=== PATIENT | male | born 1990 | race African-American/Black ===

== ENCOUNTER 2018-01-27 14:16 | Emergency (ER) | payer OTHER ==
[2018-01-27 14:48] VITALS: BP 125/87; PULSE 73; RESP 18; TEMP 97.9
[2018-01-27] MEDS ORDERED: ACET/COD 300 MG/30 MG STARTER PACK 6 TAB BTL PO STA (15:18)
[2018-01-27] MEDS ORDERED: KETOROLAC 30 MG/ML 1 ML VIAL IM STA (15:18)
--- NOTE | 2018-01-27 15:20 | ED ---
General Adult HPI - General Chief complaint: Headache Stated complaint: dental pain/headache Time Seen by Provider: 01/27/18 14:59 Source: patient Mode of arrival: ambulatory Limitations: no limitations - History of Present Illness Initial comments: 27-year-old male patient presents to the emergency department today for evaluation of left upper dental pain. Patient states that the pain started a couple of months ago however went away. Patient states this current episode started about 2 days ago. Patient states he is having pain to the whole left side of his face which is causing headaches. Patient denies any current swelling. Denies any fever, chills, nausea, vomiting, difficulty swallowing, or trismus. States that the pain initially started when he was incarcerated, states that he did start him on penicillin however did not give him prescription at time of release. Patient states he only had about 2 days worth of the antibiotics. Patient has not yet made a dentist appointment. Patient states he has been taking Tylenol for pain but is not helping. Patient denies any recent rash, shortness breath, chest pain, abdominal pain, nausea, vomiting , diarrhea, constipation, back pain, numbness, tingling, dizziness, weakness, hematuria, dysuria, urinary urgency, urinary frequency, headache, visual changes , or any other complaints. - Related Data Home Medications Medication Instructions Recorded Confirmed Albuterol Inhaler [Ventolin Hfa 1 - 2 puff INHALATION RT-Q6H PRN 01/27/18 Inhaler] Previous Rx's Medication Instructions Recorded Ibuprofen [Motrin] 600 mg PO Q8HR PRN #30 tab 01/27/18 Penicillin V Potassium [Pen Vee K] 500 mg PO Q6H #40 tablet 01/27/18 Allergies Allergy/AdvReac Type Severity Reaction Status Date / Time shellfish derived [Shellfish] Allergy Anaphylaxis Verified 01/27/18 15:12 Review of Systems ROS Statement: Those systems with pertinent positive or pertinent negative responses have been documented in the HPI. ROS Other: All systems not noted in ROS Statement are negative. Past Medical History Past Medical History: Asthma History of Any Multi-Drug Resistant Organisms: None Reported Past Surgical History: No Surgical Hx Reported Past Psychological History: No Psychological Hx Reported Smoking Status: Never smoker Past Alcohol Use History: None Reported Past Drug Use History: None Reported General Exam Limitations: no limitations General appearance: alert, in no apparent distress, other (This is a well- developed, well-nourished adult male patient in no acute distress. Vital signs upon presentation are temperature 97.9F, pulse 73, respirations 18, blood pressure 125/87, pulse ox 100% on room air.) Eye exam: Present: normal appearance, PERRL, EOMI. Absent: scleral icterus, conjunctival injection, periorbital swelling ENT exam: Present: normal oropharynx, mucous membranes moist, other (Patient has dental caries, large cavity to the left upper tooth #14. No surrounding gingival erythema or hyperplasia. No evidence of drainable abscess. No facial swelling at this time.). Absent: normal exam Neck exam: Present: normal inspection. Absent: tenderness, meningismus, lymphadenopathy Respiratory exam: Present: normal lung sounds bilaterally. Absent: respiratory distress, wheezes, rales, rhonchi, stridor Cardiovascular Exam: Present: regular rate, normal rhythm, normal heart sounds. Absent: systolic murmur, diastolic murmur, rubs, gallop, clicks Neurological exam: Present: alert, oriented X3, CN II-XII intact Psychiatric exam: Present: normal affect, normal mood Skin exam: Present: warm, dry, intact, normal color. Absent: rash Course Vital Signs 01/27/18 14:43 Temperature 97.9 F Pulse Rate 73 Respiratory 18 Rate Blood Pressure 125/87 O2 Sat by Pulse 100 Oximetry Medical Decision Making - Medical Decision Making 27-year-old male patient presents to the emergency department today for evaluation of left upper dental pain. Physical examination did reveal large cavity to tooth #14. There is no evidence of drainable abscess. Patient was started on Pen-Vee K and given pain medication for home. He is instructed to follow-up with dentistry as soon as possible. He was given phone number for [place] [facility] and for the [facility] dental [facility]. Return parameters were discussed in detail. He verbalizes understanding and agrees with this plan. Disposition Clinical Impression: Dental caries, Acute headache Disposition: HOME SELF-CARE Condition: Good Instructions: Acute Headache (ED) Additional Instructions: Complete medications as directed. Follow-up with dentistry as soon as possible. Follow-up with the primary care physician for recheck in 1-2 days. Return here immediately for any new, worsening, or concerning symptoms. Please follow up with the [facility] dental clinic. [facility] [place] [address]. Phone number for new patients or for existing patients. [facility]. Must pay for x-rays then services are free. Call for an appoitnment. Prescriptions: Ibuprofen [Motrin] 600 mg PO Q8HR PRN #30 tab PRN Reason: Pain Penicillin V Potassium [Pen Vee K] 500 mg PO Q6H #40 tablet Is patient prescribed a controlled substance at d/c from ED?: No Referrals: None,Stated [Primary Care Provider] - 1-2 days Time of Disposition: 15:19
== END 2018-01-27 15:50 | disposition home or self-care (01) ==
LOC: EC 14:16
DX: K02.9 Dental caries, unspecified (principal); R51 Headache; Z91.013 Allergy to seafood
CPT/HCPCS: 99283; 96372; J1885

== ENCOUNTER 2018-02-02 13:30 | Emergency (ER) | payer OTHER ==
[2018-02-02 13:39] VITALS: RESP 18
[2018-02-02] MEDS ORDERED: IPRATROPIUM-ALBUTEROL 3 ML NEB INHALATION STA (13:59)
--- NOTE | 2018-02-02 14:01 | ED ---
General Adult HPI - General Chief complaint: Shortness of Breath Stated complaint: asthma; arley Time Seen by Provider: 02/02/18 13:41 Source: patient, RN notes reviewed Mode of arrival: ambulatory Limitations: no limitations - History of Present Illness Initial comments: Patient is a pleasant 27-year-old male presenting to the emergency Department with cough and difficulty breathing. Onset of symptoms was 2 days ago. Patient has occasional yellow sputum. Patient does have some clear rhinorrhea. No sore throat. No fevers. Patient does have a history of similar symptoms previously associated with asthma since . - Related Data Home Medications Medication Instructions Recorded Confirmed Albuterol Inhaler [Ventolin Hfa 1 - 2 puff INHALATION RT-Q6H PRN 01/27/18 Inhaler] Previous Rx's Medication Instructions Recorded Ibuprofen [Motrin] 600 mg PO Q8HR PRN #30 tab 01/27/18 Penicillin V Potassium [Pen Vee K] 500 mg PO Q6H #40 tablet 01/27/18 Albuterol Inhaler [Ventolin Hfa 2 puff INHALATION Q4HR PRN #1 02/02/18 Inhaler] inhaler predniSONE 20 mg PO BID #8 tab 02/02/18 Allergies Allergy/AdvReac Type Severity Reaction Status Date / Time shellfish derived [Shellfish] Allergy Anaphylaxis Verified 02/02/18 13:39 Review of Systems ROS Statement: Those systems with pertinent positive or pertinent negative responses have been documented in the HPI. ROS Other: All systems not noted in ROS Statement are negative. Constitutional: Denies: fever Eyes: Denies: eye pain ENT: Reports: congestion Respiratory: Reports: cough, dyspnea Cardiovascular: Denies: chest pain Endocrine: Denies: fatigue Gastrointestinal: Denies: abdominal pain Genitourinary: Denies: dysuria Musculoskeletal: Denies: back pain Skin: Denies: rash Neurological: Denies: weakness Past Medical History Past Medical History: Asthma History of Any Multi-Drug Resistant Organisms: None Reported Past Surgical History: No Surgical Hx Reported Past Psychological History: No Psychological Hx Reported Smoking Status: Never smoker Past Alcohol Use History: None Reported Past Drug Use History: None Reported General Exam Limitations: no limitations General appearance: alert, in no apparent distress Head exam: Present: atraumatic Eye exam: Present: normal appearance ENT exam: Present: normal oropharynx Neck exam: Present: normal inspection Respiratory exam: Present: wheezes, decreased breath sounds Cardiovascular Exam: Present: regular rate, normal rhythm GI/Abdominal exam: Present: soft. Absent: tenderness Extremities exam: Present: normal inspection. Absent: pedal edema, calf tenderness Neurological exam: Present: alert Psychiatric exam: Present: normal affect, normal mood Skin exam: Present: normal color Course Vital Signs 02/02/18 02/02/18 02/02/18 13:36 14:12 14:21 Temperature 97.9 F Pulse Rate 83 84 84 Respiratory 18 Rate Blood Pressure 116/65 O2 Sat by Pulse 99 Oximetry Medical Decision Making - Medical Decision Making Patient reevaluated and feels much better. Lung sounds still has some wheezing. Patient states he is comfortable how he is at this point and requests discharge home. Patient updated on x-ray results. - Radiology Data Radiology results: image reviewed (Chest x-ray shows no acute process) Disposition Clinical Impression: Asthma with exacerbation Disposition: HOME SELF-CARE Condition: Stable Instructions: Asthma (ED) Additional Instructions: Please follow-up with primary care physician in the next couple days for recheck. Return for difficulty breathing, fevers, worsening or changing symptoms or other concerns. Prescriptions: Albuterol Inhaler [Ventolin Hfa Inhaler] 2 puff INHALATION Q4HR PRN #1 inhaler PRN Reason: Dyspnea predniSONE 20 mg PO BID #8 tab Is patient prescribed a controlled substance at d/c from ED?: No Referrals: Yadira Montano MD [STAFF PHYSICIAN] - 1-2 days Time of Disposition: 14:46
--- NOTE | 2018-02-02 14:22 | XR ---
EXAMINATION TYPE: XR chest 2V DATE OF EXAM: 02/02/2018 COMPARISON: NONE HISTORY: Short of breath TECHNIQUE: Frontal and lateral views of the chest are obtained. FINDINGS: Heart and mediastinum are normal. Lungs are clear. Diaphragm is normal. Bony thorax is int act. IMPRESSION: Normal chest
[2018-02-02] MEDS ORDERED: predniSONE 50 MG TAB PO STA (14:42)
[2018-02-02 15:00] VITALS: BP 122/64; PULSE 83; TEMP 98.1
== END 2018-02-02 14:58 | disposition home or self-care (01) ==
LOC: EC 13:30
DX: J45.901 Unspecified asthma with (acute) exacerbation (principal); Z91.013 Allergy to seafood
CPT/HCPCS: 94640; 71046; 99285; J7512

== ENCOUNTER 2018-02-26 09:08 | Emergency (ER) | payer OTHER ==
[2018-02-26] MEDS ORDERED: DEXAMETHASONE 4 MG TAB PO STA (09:22)
[2018-02-26] MEDS ORDERED: IPRATROPIUM 0.5 MG/2.5 ML NEBU INHALATION STA (09:22)
[2018-02-26] MEDS ORDERED: ALBUTEROL NEBULIZED 2.5 MG/3 ML INHALATION STA (09:22)
--- NOTE | 2018-02-26 09:23 | ED ---
SOB HPI - General Chief Complaint: Shortness of Breath Stated Complaint: ASTHMA Time Seen by Provider: 02/26/18 09:22 Source: patient, RN notes reviewed, old records reviewed Mode of arrival: ambulatory Limitations: no limitations - History of Present Illness Initial Comments: This is a 19-year-old male the ER for evaluation shortness of breath cough congestion pain with cough. No fevers. No travel history no sick contacts no ALLERGIC exposures. Patient does have asthma doing at home inhalers without help. MD Complaint: shortness of breath, cough, "asthma attack" -: days(s) (2) Severity: mild Severity scale (1-10): 3 Consistency: intermittent Improves With: bronchodilators Worsens With: exertion Known History Of: asthma Context: recent URI Associated Symptoms: denies other symptoms Treatments Prior to Arrival: none - Related Data Home Medications Medication Instructions Recorded Confirmed Albuterol Inhaler [Ventolin Hfa 1 - 2 puff INHALATION RT-Q6H PRN 01/27/18 Inhaler] Previous Rx's Medication Instructions Recorded Albuterol Nebulized [Ventolin 2.5 mg INHALATION Q4H PRN #25 nebu 02/26/18 Nebulized] Albuterol Sulfate [Proair Hfa] 1 - 2 puff INHALATION Q4H PRN #1 02/26/18 inhaler Azithromycin [Zithromax] 250 mg PO DAILY 3 Days #3 tab 02/26/18 predniSONE 50 mg PO DAILY #5 tab 02/26/18 Allergies Allergy/AdvReac Type Severity Reaction Status Date / Time shellfish derived [Shellfish] Allergy Anaphylaxis Verified 02/26/18 09:49 Review of Systems ROS Statement: Those systems with pertinent positive or pertinent negative responses have been documented in the HPI. ROS Other: All systems not noted in ROS Statement are negative. Past Medical History Past Medical History: Asthma History of Any Multi-Drug Resistant Organisms: None Reported Past Surgical History: No Surgical Hx Reported Past Psychological History: No Psychological Hx Reported Smoking Status: Never smoker Past Alcohol Use History: None Reported Past Drug Use History: None Reported General Exam Limitations: no limitations General appearance: alert, in no apparent distress Head exam: Present: atraumatic, normocephalic, normal inspection Eye exam: Present: normal appearance, PERRL, EOMI. Absent: scleral icterus, conjunctival injection, periorbital swelling ENT exam: Present: normal exam, mucous membranes moist Neck exam: Present: normal inspection. Absent: tenderness, meningismus, lymphadenopathy Respiratory exam: Present: wheezes, decreased breath sounds, prolonged expiratory. Absent: respiratory distress, rales, rhonchi, stridor Cardiovascular Exam: Present: regular rate, normal rhythm, normal heart sounds. Absent: systolic murmur, diastolic murmur, rubs, gallop, clicks GI/Abdominal exam: Present: soft, normal bowel sounds. Absent: distended, tenderness, guarding, rebound, rigid Extremities exam: Present: normal inspection, full ROM, normal capillary refill. Absent: tenderness, pedal edema, joint swelling, calf tenderness Back exam: Present: normal inspection Neurological exam: Present: alert, oriented X3, CN II-XII intact Psychiatric exam: Present: normal affect, normal mood Skin exam: Present: warm, dry, intact, normal color. Absent: rash Course Vital Signs 02/26/18 02/26/18 02/26/18 09:16 09:34 09:45 Temperature 97.9 F Pulse Rate 80 75 71 Respiratory 20 20 Rate Blood Pressure 116/76 124/72 O2 Sat by Pulse 98 97 Oximetry 02/26/18 02/26/18 10:00 10:37 Temperature Pulse Rate 74 77 Respiratory Rate Blood Pressure O2 Sat by Pulse Oximetry - Reevaluation(s) Reevaluation #1: 02/26/18 11:08 Medical record is reviewed. She is feeling much better with breathing treatment Medical Decision Making - Medical Decision Making 19 male the ER with cough congestion shortness of breath positive asthma exacerbation. Breathing is improved here in the ER patient can be discharged home - Radiology Data Radiology results: report reviewed (Chest x-rays negative for acute disease), image reviewed Disposition Clinical Impression: Asthma with exacerbation Disposition: HOME SELF-CARE Condition: Good Instructions: Asthma (ED), Acute Bronchitis (ED) Prescriptions: Albuterol Nebulized [Ventolin Nebulized] 2.5 mg INHALATION Q4H PRN #25 nebu PRN Reason: Shortness Of Breath Albuterol Sulfate [Proair Hfa] 1 - 2 puff INHALATION Q4H PRN #1 inhaler PRN Reason: Shortness Of Breath Azithromycin [Zithromax] 250 mg PO DAILY 3 Days #3 tab predniSONE 50 mg PO DAILY #5 tab Is patient prescribed a controlled substance at d/c from ED?: No Referrals: None,Stated [Primary Care Provider] - 1-2 days
--- NOTE | 2018-02-26 10:54 | XR ---
EXAMINATION TYPE: XR chest 2V DATE OF EXAM: 02/26/2018 COMPARISON: 02/02/2018 TECHNIQUE: PA and lateral views submitted. HISTORY: Shortness of breath and cough FINDINGS: The lungs are clear and there is no pneumothorax, pleural effusion, or focal pneumonia. No overt fa ilure. IMPRESSION: 1. No acute process.
[2018-02-26 11:19] VITALS: BP 109/73; PULSE 84; RESP 18; TEMP 98.6
== END 2018-02-26 11:17 | disposition home or self-care (01) ==
LOC: EC 09:08
DX: J45.901 Unspecified asthma with (acute) exacerbation (principal); Z91.013 Allergy to seafood
CPT/HCPCS: 71046; 94644; 99285

== ENCOUNTER 2018-03-08 09:37 | Emergency (ER) | payer OTHER ==
[2018-03-08 09:41] VITALS: BP 115/69; RESP 18; TEMP 97.9
[2018-03-08] MEDS ORDERED: IPRATROPIUM-ALBUTEROL 3 ML NEB INHALATION STA ×2 (09:51→11:02)
[2018-03-08] MEDS ORDERED: methylPREDNISolone SOD SUCCI 125 MG/2 ML VIAL IM STA (09:51)
--- NOTE | 2018-03-08 09:53 | ED ---
General Adult HPI - General Chief complaint: Upper Respiratory Infection Stated complaint: Diff Breathing Time Seen by Provider: 03/08/18 09:44 Source: patient, RN notes reviewed Mode of arrival: ambulatory Limitations: no limitations - History of Present Illness Initial comments: Patient 27-year-old male significant past medical history for asthma, presented to the emergency room today with a chief complaint of cough, congestion over the last 2-3 days. Patient states that he has had positive sputum production that is been yellow in color. Has been using inhalers at home with little relief the last 2 days. Patient does admit to increased tightness in his chest consistent with asthma. He denies any other complaints or symptoms. Patient denies any recent fever, chills, shortness of breath, chest pain, back pain, abdominal pain, nausea or vomiting, headaches or visual changes, or any other complaints. - Related Data Home Medications Medication Instructions Recorded Confirmed Albuterol Inhaler [Ventolin Hfa 1 - 2 puff INHALATION RT-Q6H PRN 01/27/18 Inhaler] Previous Rx's Medication Instructions Recorded Albuterol Nebulized [Ventolin 2.5 mg INHALATION Q4H PRN #25 nebu 02/26/18 Nebulized] Albuterol Sulfate [Proair Hfa] 1 - 2 puff INHALATION Q4H PRN #1 02/26/18 inhaler Azithromycin [Zithromax] 250 mg PO DAILY 3 Days #3 tab 02/26/18 predniSONE 50 mg PO DAILY #5 tab 02/26/18 Albuterol Inhaler [Ventolin Hfa 1 - 2 puff INHALATION Q4-6H PRN #1 03/08/18 Inhaler] inhaler Albuterol Nebulized [Ventolin 2.5 mg INHALATION Q4H PRN 10 Days 03/08/18 Nebulized] nebu Azithromycin [Zithromax Z-pack] 0 mg PO DIRECTED #6 tab 03/08/18 predniSONE 60 mg PO DAILY 5 Days tab 03/08/18 Allergies Allergy/AdvReac Type Severity Reaction Status Date / Time shellfish derived [Shellfish] Allergy Anaphylaxis Verified 02/26/18 09:49 Review of Systems ROS Statement: Those systems with pertinent positive or pertinent negative responses have been documented in the HPI. ROS Other: All systems not noted in ROS Statement are negative. Past Medical History Past Medical History: Asthma History of Any Multi-Drug Resistant Organisms: None Reported Past Surgical History: No Surgical Hx Reported Past Psychological History: No Psychological Hx Reported Smoking Status: Never smoker Past Alcohol Use History: None Reported Past Drug Use History: None Reported General Exam - General Exam Comments Initial Comments: General: The patient is awake and alert, in no distress, and does not appear acutely ill. Eye: Pupils are equal, round and reactive to light. Extra-ocular movements are intact. No nystagmus. There is normal conjunctiva bilaterally. No signs of icterus. Ears, nose, mouth and throat: There are moist mucous membranes and no oral lesions. Neck: The neck is supple, there is no tenderness or JVD. Cardiovascular: There is a regular rate and rhythm. No murmur, rub or gallop is appreciated. Respiratory: Bilateral expiratory wheeze, respirations are non-labored, breath sounds are equal. No stridor, rales, or rhonchi. Musculoskeletal: Normal ROM, no tenderness. Sensation intact. Strength 5/5. Pulses equal bilaterally 2+. Neurological: A&O x 3. CN II-XII intact, There are no obvious motor or sensory deficits. Coordination appears grossly intact. Speech is normal. Skin: Skin is warm and dry and no rashes or lesions are noted. Psychiatric: Cooperative, appropriate mood & affect, normal judgment. Limitations: no limitations Course Vital Signs 03/08/18 03/08/18 03/08/18 09:37 10:11 10:17 Temperature 97.9 F Pulse Rate 90 90 96 Respiratory 18 Rate Blood Pressure 115/69 O2 Sat by Pulse 94 L Oximetry Medical Decision Making - Medical Decision Making Patient reexamined at this time shows no signs of stress distress to cover her doesn't improve after breathing treatment. Patient's lung sounds are improved. Patient does have history of asthma. Does have access to a nebulizer at home. Patient will be treated for bronchitis. Chest x-rays clear no sign of pneumonia. Patient will be given azithromycin, steroids, and breathing treatment. Disposition Clinical Impression: Asthmatic bronchitis Disposition: HOME SELF-CARE Condition: Good Instructions: Acute Bronchitis (ED) Additional Instructions: Please use medication as discussed. Please follow-up with family doctor in the next 2 days of symptoms have not improved. Please return to emergency room if the symptoms increase or worsen or for any other concerns. Prescriptions: Albuterol Inhaler [Ventolin Hfa Inhaler] 1 - 2 puff INHALATION Q4-6H PRN #1 inhaler PRN Reason: Cough Albuterol Nebulized [Ventolin Nebulized] 2.5 mg INHALATION Q4H PRN 10 Days nebu PRN Reason: Cough Azithromycin [Zithromax Z-pack] 0 mg PO DIRECTED #6 tab predniSONE 60 mg PO DAILY 5 Days tab Is patient prescribed a controlled substance at d/c from ED?: No Referrals: None,Stated [Primary Care Provider] - 1-2 days Time of Disposition: 11:05
--- NOTE | 2018-03-08 10:36 | XR ---
EXAMINATION TYPE: XR chest 2V DATE OF EXAM: 03/08/2018 HISTORY: cough. REFERENCE: Previous study dated 02/26/2018. FINDINGS: The lungs remain clear. Pleural space are clear. The heart is not enlarged. IMPRESSION: NO ACTIVE INTRATHORACIC DISEASE.
[2018-03-08 11:46] VITALS: PULSE 95
== END 2018-03-08 11:53 | disposition home or self-care (01) ==
LOC: EC 09:37
DX: J45.909 Unspecified asthma, uncomplicated (principal); Z91.013 Allergy to seafood
CPT/HCPCS: 94640 ×2; 71046; 99283; 96372; J2930

== ENCOUNTER 2018-04-11 09:56 | Emergency (ER) | payer OTHER ==
[2018-04-11] MEDS ORDERED: ALBUTEROL NEBULIZED 2.5 MG/3 ML INHALATION STA (10:20)
[2018-04-11] MEDS ORDERED: IPRATROPIUM 0.5 MG/2.5 ML NEBU INHALATION STA (10:20)
[2018-04-11] MEDS ORDERED: DEXAMETHASONE 4 MG TAB PO STA (10:21)
--- NOTE | 2018-04-11 10:23 | ED ---
General Adult HPI - General Chief complaint: Shortness of Breath Stated complaint: asthma Source: patient Mode of arrival: ambulatory Limitations: no limitations - History of Present Illness Initial comments: Dictation was produced using [employer] dictation software. please excuse any grammatical, word or spelling errors. Chief Complaint: Patient is a 27-year-old -[place] male past medical history of asthma presents with dyspnea 3 days. History of Present Illness: Patient is a 27-year-old male with past medical history of asthma presents with dyspnea 3 days. Patient believes that his asthma was triggered by the changes in weather. Patient has been coughing. Denies any production of sputum. Patient states his cough and produces some chest pain. Patient has a history of blood clots. Denies any lower extremity symptoms. Patient denies any viral URI type symptoms as well. No constitutional symptoms. The ROS documented in this emergency department record has been reviewed and confirmed by me. Those systems with pertinent positive or negative responses have been documented in the HPI. All other systems are other negative and/or noncontributory. - Related Data Home Medications Medication Instructions Recorded Confirmed Albuterol Inhaler [Ventolin Hfa 1 - 2 puff INHALATION RT-Q6H PRN 01/27/18 Inhaler] Albuterol Nebulized [Ventolin 2.5 mg INHALATION RT-Q4H PRN 04/11/18 04/11/18 Nebulized] Previous Rx's Medication Instructions Recorded Albuterol Sulfate [Proair Hfa] 1 - 2 puff INHALATION Q6HR PRN #1 04/11/18 inhaler Dexamethasone [Decadron] 6 mg PO ONCE #2 tablet 04/11/18 Allergies Allergy/AdvReac Type Severity Reaction Status Date / Time shellfish derived [Shellfish] Allergy Anaphylaxis Verified 04/11/18 10:11 Review of Systems ROS Statement: Those systems with pertinent positive or pertinent negative responses have been documented in the HPI. ROS Other: All systems not noted in ROS Statement are negative. Past Medical History Past Medical History: Asthma History of Any Multi-Drug Resistant Organisms: None Reported Past Surgical History: No Surgical Hx Reported Past Psychological History: No Psychological Hx Reported Smoking Status: Never smoker Past Alcohol Use History: None Reported Past Drug Use History: None Reported General Exam - General Exam Comments Initial Comments: PHYSICAL EXAM: General Impression: Alert and oriented x3, not in acute distress HEENT: Normocephalic atraumatic, extra-ocular movements intact, pupils equal and reactive to light bilaterally, mucous membranes moist. Cardiovascular: Heart regular rate and rhythm, S1&S2 audible, no murmurs, rubs or gallops Chest: Severe bilateral lung wheezing Abdomen: Bowel sounds present, abdomen soft, non-tender, non-distended, no organomegaly Musculoskeletal: Pulses present and equal in all extremities, no peripheral edema Motor: Power 5/5 bilaterally, no focal deficits noted Neurological: CN II-XII grossly intact, no focal motor or sensory deficits noted Skin: Intact with no visualized rashes Psych: Normal affect and mood Limitations: no limitations Course Vital Signs 04/11/18 04/11/18 04/11/18 09:57 10:34 11:07 Temperature 97.9 F Pulse Rate 88 89 Respiratory 20 18 18 Rate Blood Pressure 118/82 O2 Sat by Pulse 97 Oximetry 04/11/18 04/11/18 11:17 11:50 Temperature Pulse Rate 90 91 Respiratory 18 18 Rate Blood Pressure O2 Sat by Pulse Oximetry Medical Decision Making - Medical Decision Making ED course: 27 year old [place] male with past medical history of asthma presents with clinical presentation consistent with asthma exacerbation. Vital signs upon arrival are within acceptable limits. Patient given breathing treatment. Patient also given 10 mg by mouth Decadron. He is observed in emergency department for several hours with improvement in breathing status. Patient is to be given repeat dose of Decadron and 3 days. She is also given refill on his albuterol inhaler. Patient told to come to the emergency department should he expense any worsening symptoms. Patient otherwise told to follow-up with his primary care physician. Patient is understandable and agreeable to plan. Disposition Clinical Impression: Asthma exacerbation Disposition: HOME SELF-CARE Condition: Good Instructions: Asthma (ED) Prescriptions: Albuterol Sulfate [Proair Hfa] 1 - 2 puff INHALATION Q6HR PRN #1 inhaler PRN Reason: Dyspnea Dexamethasone [Decadron] 6 mg PO ONCE #2 tablet Is patient prescribed a controlled substance at d/c from ED?: No Referrals: None,Stated [Primary Care Provider] - 1-2 days Carlos Mcnulty MD [REFERRING] - 1-2 days Time of Disposition: 12:26
[2018-04-11 10:46] VITALS: RESP 18
--- NOTE | 2018-04-11 10:53 | XR ---
EXAMINATION TYPE: XR chest 2V DATE OF EXAM: 04/11/2018 COMPARISON: Prior chest x-ray 03/08/2018 HISTORY: Cough and chest pain, shortness of breath TECHNIQUE: Frontal and lateral views of the chest are obtained. FINDINGS: There is no focal air space opacity, pleural effusion, or pneumothorax seen. The cardiac silhouette size is within normal limits. The osseous structures are intact. IMPRESSION: No acute cardiopulmonary process.
--- NOTE | 2018-04-11 12:46 | ED ---
Disposition Clinical Impression: Asthma exacerbation Disposition: HOME SELF-CARE Condition: Good Instructions: Asthma (ED) Prescriptions: Albuterol Nebulized [Ventolin Nebulized] 2.5 mg INHALATION Q6H PRN #20 nebu PRN Reason: Shortness Of Breath Albuterol Sulfate [Proair Hfa] 1 - 2 puff INHALATION Q6HR PRN #1 inhaler PRN Reason: Dyspnea Dexamethasone [Decadron] 6 mg PO ONCE #2 tablet Is patient prescribed a controlled substance at d/c from ED?: No Referrals: Carlos Mcnulty MD [REFERRING] - 1-2 days None,Stated [Primary Care Provider] - 1-2 days
[2018-04-11 12:49] VITALS: BP 126/80; PULSE 82; TEMP 98.1
== END 2018-04-11 12:47 | disposition home or self-care (01) ==
LOC: EC 09:56
DX: J45.901 Unspecified asthma with (acute) exacerbation (principal); Z91.013 Allergy to seafood
CPT/HCPCS: 71046; 94644; 99285

== ENCOUNTER 2018-11-25 18:48 | Emergency (ER) | payer OTHER ==
--- NOTE | 2018-11-25 19:19 | XR ---
EXAMINATION TYPE: XR chest 2V DATE OF EXAM: 11/25/2018 COMPARISON: 04/11/2018 TECHNIQUE: PA and lateral views submitted. HISTORY: Pain, asthma FINDINGS: The lungs are clear and there is no pneumothorax, pleural effusion, or focal pneumonia. IMPRESSION: 1. No acute process.
[2018-11-25] MEDS ORDERED: methylPREDNISolone SOD SUCCI 125 MG/2 ML VIAL IV STA (19:30)
[2018-11-25] MEDS ORDERED: ALBUTEROL NEBULIZED (CONC) 5 MG, SODIUM CHLORIDE 0.9% NEBULIZ 3 ML INHALATION STA ×2 (19:30)
[2018-11-25] MEDS ORDERED: ALBUTEROL NEB (CONC) 2.5 MG/0.5 ML INHALATION STA (19:54)
[2018-11-25] MEDS ORDERED: ALBUTEROL NEBULIZED 2.5 MG/3 ML INHALATION STA ×4 (19:57→21:37)
[2018-11-25] MEDS ORDERED: ALBUTEROL NEBULIZED 2.5 MG/3 ML INHALATION SCH (20:00)
[2018-11-25] MEDS ORDERED: MAGNESIUM SULFATE-D5W PMX 1 GM in DEXTROSE/WATER 1 100ML.BAG IVPB ONE (21:37)
--- NOTE | 2018-11-25 21:46 | ED ---
General Adult HPI - General Chief complaint: Shortness of Breath Stated complaint: Asthma Time Seen by Provider: 11/25/18 19:30 Source: patient Mode of arrival: ambulatory Limitations: no limitations - History of Present Illness Initial comments: 28-year-old male presenting today for chief complaint of shortness of breath. She states she has history of asthma and that his symptoms today are identical to previous exacerbations. Patient states that for the past few nights he has had nighttime cough he states this usually happens prior to the onset of exacerbations. He states he is more exacerbations to in the summer he believes is due to ALLERGIES. Patient states he is out of his rescue inhaler was unable to medicate himself. Patient states that he began experiencing wheezing for the past 2 days that has been increasing. When 8 wheezing worsened again today he presents emergency department for evaluation of asthma exacerbation. Upon arri nikki patient is able to speak complete sentences. Patient denies any chest pain. Denies any leg swelling or hemoptysis. Patient has recent surgeries or recent travel. Denies any recent immobilization fevers or productive cough. Patient is actually well on room air upon arrival 100%. No signs of respiratory distress, but on gross exam noted expiratory wheeze. - Related Data Home Medications Medication Instructions Recorded Confirmed Albuterol Inhaler [Ventolin Hfa 1 - 2 puff INHALATION RT-Q6H PRN 01/27/18 11/25/18 Inhaler] Albuterol Nebulized [Ventolin 2.5 mg INHALATION RT-Q4H PRN 04/11/18 11/25/18 Nebulized] Previous Rx's Medication Instructions Recorded Albuterol Inhaler [Ventolin Hfa 1 - 2 puff INHALATION RT-Q6H PRN 7 11/25/18 Inhaler] Days #1 inhaler Albuterol Nebulized [Ventolin 2.5 mg INHALATION Q6H PRN 7 Days 11/25/18 Nebulized] #28 nebu predniSONE 20 mg PO BID 5 Days #10 tab 11/25/18 Allergies Allergy/AdvReac Type Severity Reaction Status Date / Time iodine Allergy Anaphylaxis Verified 11/25/18 19:54 shellfish derived [Shellfish] Allergy Anaphylaxis Verified 11/25/18 18:54 Review of Systems ROS Statement: Those systems with pertinent positive or pertinent negative responses have been documented in the HPI. ROS Other: All systems not noted in ROS Statement are negative. Past Medical History Past Medical History: Asthma History of Any Multi-Drug Resistant Organisms: None Reported Past Surgical History: No Surgical Hx Reported Past Psychological History: No Psychological Hx Reported Smoking Status: Never smoker Past Alcohol Use History: None Reported Past Drug Use History: None Reported General Exam - General Exam Comments Initial Comments: General: The patient is awake and alert, in no distress, and does not appear acutely ill. Eye: +3 mm pupils are equal, round and reactive to light, extra-ocular movements are intact. No nystagmus. There is normal conjunctiva bilaterally. No signs of icterus. No photophobia Ears, nose, mouth and throat: There are moist mucous membranes and no oral lesions. Oropharynx was not erythematous there is no tonsillar enlargement exudates or lesions. Uvula midline. Tympanic membranes are not erythematous or is no effusions bulging or retraction. No tenderness to palpation of the mastoid. No anterior cervical lymphadenopathy. No tripoding, no drooling. Neck: The neck is supple, there is no tenderness or JVD. Cardiovascular: There is a regular rate and rhythm. No murmur, rub or gallop is appreciated. Respiratory: Respirations are non-labored. Slight inspiratory and obvious expiratory wheeze on lung exam. No retractions or abdominal breathing. Gastrointestinal: Soft, non-distended, non-tender abdomen without masses or organomegaly noted. There is no rebound or guarding present. Bowel sounds are unremarkable. Musculoskeletal: Normal ROM, no tenderness. Strength 5/5. Sensation intact. Radial pulses equal bilaterally 2+. Neurological: A&O x 3. CN II-XII intact, There are no obvious motor or sensory deficits. Coordination appears grossly intact. Speech appears normal, no muffling. Skin: Skin is warm and dry and no rashes or lesions are noted. No extremity edema Psychiatric: Cooperative Limitations: no limitations Course Vital Signs 11/25/18 11/25/18 11/25/18 18:51 20:06 20:19 Temperature 98.6 F Pulse Rate 90 81 86 Respiratory 16 Rate Blood Pressure 108/66 O2 Sat by Pulse 98 Oximetry 11/25/18 11/25/18 11/25/18 21:02 21:10 21:12 Temperature Pulse Rate 84 70 77 Respiratory 19 Rate Blood Pressure 129/78 O2 Sat by Pulse 100 Oximetry 11/25/18 11/25/18 11/25/18 22:31 22:42 23:18 Temperature 98.7 F Pulse Rate 82 72 78 Respiratory 17 Rate Blood Pressure 124/76 O2 Sat by Pulse 97 Oximetry Medical Decision Making - Medical Decision Making 28-year-old male presenting today for chief complaint of asthma exacerbation. Patient has slight inspiratory and excessive expiratory wheeze on exam. Patient able to speak complete sentences and is oxygenating well on RA. After 3 treatments and magensium infusion patient has excellent lung movement, resoluti on of symptoms and wheeze. Appears well, oxygenating well. Provided steroids the emergency department as well as outpatient prescription. Patient is given a prescription for nebulized albuterol as well as a rescue inhaler and given primary care follow-up with the [facility] and the patient has no current primary care provider. Return parameters were discussed at length patient case was discussed with my attending provider Dr. Bianchi. Patient discharged apppearing well, he was agreeable and preferred discharge. Disposition Clinical Impression: Asthma exacerbation Disposition: HOME SELF-CARE Condition: Good Instructions (If sedation given, give patient instructions): Asthma (ED) Additional Instructions: Please use medication as discussed. Please follow-up with family doctor in the next 2 days. Please return to emergency room if the symptoms increase or worsen or for any other concerns. Prescriptions: predniSONE 20 mg PO BID 5 Days #10 tab Albuterol Inhaler [Ventolin Hfa Inhaler] 1 - 2 puff INHALATION RT-Q6H PRN 7 Days #1 inhaler PRN Reason: Wheezing Albuterol Nebulized [Ventolin Nebulized] 2.5 mg INHALATION Q6H PRN 7 Days #28 nebu PRN Reason: Wheezing Is patient prescribed a controlled substance at d/c from ED?: No Referrals: None,Stated [Primary Care Provider] - 1-2 days [facility] [NON-STAFF] - 1-2 days Time of Disposition: 22:53
[2018-11-25 23:19] VITALS: BP 124/76; PULSE 78; RESP 17; TEMP 98.7
== END 2018-11-25 23:19 | disposition home or self-care (01) ==
LOC: EC 18:48
DX: J45.901 Unspecified asthma with (acute) exacerbation (principal); Z91.048 Other nonmedicinal substance allergy status; Z91.013 Allergy to seafood
CPT/HCPCS: 71046; 93005; 94640; 96365; 96366; 96375; 99285

== ENCOUNTER 2018-12-15 14:06 | Emergency (ER) | payer OTHER ==
[2018-12-15] MEDS ORDERED: IPRATROPIUM-ALBUTEROL 3 ML NEB INHALATION STA (15:03)
[2018-12-15] MEDS ORDERED: methylPREDNISolone SOD SUCCI 125 MG/2 ML VIAL IM ONE (15:03)
--- NOTE | 2018-12-15 15:32 | XR ---
EXAMINATION TYPE: XR chest 2V DATE OF EXAM: 12/15/2018 COMPARISON: Prior exam dated 11/25/2018 HISTORY: Shortness of breath and wheezing TECHNIQUE: Frontal and lateral views of the chest are obtained. FINDINGS: There is no focal air space opacity, pleural effusion, or pneumothorax seen. The cardiac silhouette size is within normal limits. The osseous structures are intact. IMPRESSION: No acute cardiopulmonary process.
--- NOTE | 2018-12-15 15:43 | ED ---
General Adult HPI - General Chief complaint: Shortness of Breath Stated complaint: Asthma Time Seen by Provider: 12/15/18 14:52 Source: patient, RN notes reviewed Mode of arrival: ambulatory Limitations: no limitations - History of Present Illness Initial comments: 28-year-old male presents to the emergency determine for a chief complaint of shortness of breath. Patient has a history of asthma and states he feels like he is having an asthma exacerbation. States this started last night. States he feels wheezy and has been using his inhaler but it has not helped. Patient states he believes he has an asthma exacerbation secondary to the heat. Denies any chest pain. Denies cough. Denies fevers.Patient has no other complaints at this time including chest pain, abdominal pain, nausea or vomiting, headache, or visual changes. - Related Data Previous Rx's Medication Instructions Recorded Albuterol Inhaler [Ventolin Hfa 1 - 2 puff INHALATION RT-Q6H PRN 7 11/25/18 Inhaler] Days #1 inhaler Albuterol Nebulized [Ventolin 2.5 mg INHALATION RT-Q6H PRN #20 12/15/18 Nebulized] nebu predniSONE 50 mg PO DAILY #5 tablet 12/15/18 Allergies Allergy/AdvReac Type Severity Reaction Status Date / Time iodine Allergy Anaphylaxis Verified 12/15/18 14:37 shellfish derived [Shellfish] Allergy Anaphylaxis Verified 12/15/18 14:37 Review of Systems ROS Statement: Those systems with pertinent positive or pertinent negative responses have been documented in the HPI. ROS Other: All systems not noted in ROS Statement are negative. Past Medical History Past Medical History: Asthma History of Any Multi-Drug Resistant Organisms: None Reported Past Surgical History: No Surgical Hx Reported Past Psychological History: No Psychological Hx Reported Smoking Status: Never smoker Past Alcohol Use History: None Reported Past Drug Use History: None Reported General Exam Limitations: no limitations General appearance: alert, in no apparent distress Head exam: Present: atraumatic, normocephalic, normal inspection Eye exam: Present: normal appearance, PERRL, EOMI. Absent: scleral icterus, conjunctival injection, periorbital swelling ENT exam: Present: normal exam, mucous membranes moist Neck exam: Present: normal inspection. Absent: tenderness, meningismus, lymphadenopathy Respiratory exam: Present: wheezes (Patient has wheezing throughout all lung sal.). Absent: respiratory distress, rales, rhonchi, stridor, accessory muscle use Cardiovascular Exam: Present: regular rate, normal rhythm, normal heart sounds. Absent: systolic murmur, diastolic murmur, rubs, gallop, clicks Neurological exam: Present: alert Psychiatric exam: Present: normal affect, normal mood Course Vital Signs 12/15/18 12/15/18 12/15/18 14:24 15:57 16:17 Temperature 98.4 F Pulse Rate 80 80 80 Respiratory 20 Rate Blood Pressure 112/61 O2 Sat by Pulse 98 Oximetry Medical Decision Making - Medical Decision Making 28-year-old male presents to the emergency department for a chief colitis shortness of breath. Patient has a history of asthma states he feels like his having an exacerbation. States this started last night. Thinks this is secondary to the heat outside. Denies chest pain cough or fever. On exam patient does have wheezes noted throughout all lung sal. Vitals are stable, patient is 98% on room air. No respiratory distress, accessory muscle use, or tripoding. Patient was given 2 DuoNeb's and Solu-Medrol. Chest x-ray shows no acute cardiopulmonary process. Patient reevaluated, feeling much better at this time. States wheezing is improved. On auscultation it does seem to have improved. Patient will be given prednisone outpatient as well as a refill for his DuoNeb. He will follow up with primary care. Discussed returning if he has any worsening symptoms. Disposition Clinical Impression: Asthma exacerbation Disposition: HOME SELF-CARE Condition: Good Instructions (If sedation given, give patient instructions): Asthma (ED) Additional Instructions: Please take steroid as directed. Please follow-up with primary care in 1-2 days. If you develop any worsening symptoms return to the emergency department. Prescriptions: predniSONE 50 mg PO DAILY #5 tablet Albuterol Nebulized [Ventolin Nebulized] 2.5 mg INHALATION RT-Q6H PRN #20 nebu PRN Reason: Wheezing Is patient prescribed a controlled substance at d/c from ED?: No Referrals: Yadira Montano MD [STAFF PHYSICIAN] - 1-2 days Time of Disposition: 16:46
[2018-12-15 17:27] VITALS: BP 137/86; PULSE 81; RESP 18; TEMP 98.1
== END 2018-12-15 17:20 | disposition home or self-care (01) ==
LOC: EC 14:06
DX: J45.901 Unspecified asthma with (acute) exacerbation (principal); Z91.041 Radiographic dye allergy status; Z91.013 Allergy to seafood
CPT/HCPCS: 94640; 71046; 96372; 99285; J2930